=== PATIENT | female | born 1990 | race Caucasian/White ===

== ENCOUNTER 2020-02-25 14:52 | Emergency (ER) | payer OTHER ==
[~2020-02-25 14:52] MED LIST: IBUPROFEN600 MG PO; NORCO 5-325 TA1 EACH PO; OMNICEF 300 MG300 MG PO; PRENATAL VITAM1 EAC8 PO
[2020-02-25 16:01] LABS: HEMOGLOBIN 12.8 gm/dl (12.3-15.3); RED BLOOD COUNT 4.36 M/UL (4.00-5.10); WHITE BLOOD COUNT 5.7 K/UL (4.5-11.0)
[2020-02-25 16:22] LABS: BUN/CREATININE RATIO 13 (0-10)
[2020-02-25] MEDS ORDERED: AZITHROMYCIN500 MG PO (18:14)
== END 2020-02-25 18:38 | disposition home or self-care (01) ==
LOC: ER1 14:52
PROVIDERS: Emergency Medicine
DX: U07.1 COVID-19 (principal); Z86.718 Personal history of other venous thrombosis and embolism
CPT/HCPCS: 80053; 82550; 82553; 83605; 83735; 83874; 83880; 84100; 84484; 85025; 85610; 85730; 87040; 93005; 99285; Q9967; U0002

== ENCOUNTER 2020-04-24 03:23 | Outpatient (CLI) | payer OTHER ==
[~2020-04-24 03:23] MED LIST changes: +AZITHROMYCIN500 MG PO
[2020-04-24 05:53] LABS: HEMOGLOBIN 10.7 gm/dl (12.3-15.3); RED BLOOD COUNT 3.7 M/UL (4.00-5.10); WHITE BLOOD COUNT 21.2 K/UL (4.5-11.0)
[2020-04-24 06:14] LABS: BUN/CREATININE RATIO 13 (0-10)
[2020-04-25 07:22] LABS: HEMOGLOBIN 9.9 gm/dl (12.3-15.3); RED BLOOD COUNT 3.55 M/UL (4.00-5.10); WHITE BLOOD COUNT 10.7 K/UL (4.5-11.0)
== END 2020-04-25 21:12 | disposition home or self-care (01) ==
LOC: GENOP 03:23
PROVIDERS: Obstetrics & Gynecology
DX: O42.913 Preterm premature rupture of membranes, unspecified as to length of time between rupture and onset of labor, third trimester (principal); O26.93 Pregnancy related conditions, unspecified, third trimester; R10.9 Unspecified abdominal pain; Z3A.30 30 weeks gestation of pregnancy; Z20.822 Contact with and (suspected) exposure to COVID-19
CPT/HCPCS: 36415; 59025; 80053; 81001; 82731; 83518; 85025; 87040; 87210; 93970; 96360; 96361; 96365; 96367; 96374; 96375; 96376; C9113; J0690; J2270; J2405; J3370; J7070; U0002

== ENCOUNTER 2020-05-03 13:26 | Outpatient (CLI) | payer OTHER ==
[2020-05-03 14:16] LABS: HEMOGLOBIN 10.9 gm/dl (12.3-15.3); RED BLOOD COUNT 3.84 M/UL (4.00-5.10)
[2020-05-03 14:54] LABS: BUN/CREATININE RATIO 19 (0-10)
== END 2020-05-04 12:26 | disposition home or self-care (01) ==
LOC: GENOP 13:26
PROVIDERS: Obstetrics & Gynecology
DX: O99.891 Other specified diseases and conditions complicating pregnancy (principal); R50.9 Fever, unspecified; M79.10 Myalgia, unspecified site; Z20.822 Contact with and (suspected) exposure to COVID-19
CPT/HCPCS: 0240U; 36415; 59025; 80053; 81001; 83605; 85025; 87040; 87081; 87086; 87880; 96360; 96361; 96374; J2405; J7120

== ENCOUNTER → 2020-05-20 | Outpatient (CLI) | payer OTHER | LOC: GENOP 15:28 | DX: O36.8130 Decreased fetal movements, third trimester, not applicable or unspecified (principal); O42.913 Preterm premature rupture of membranes, unspecified as to length of time between rupture and onset of labor, third trimester; Z3A.33 33 weeks gestation of pregnancy | CPT/HCPCS: 76815; 83518 ==

== ENCOUNTER 2020-06-06 12:16 | Observation (INO) | payer OTHER ==
[2020-06-06 13:01] LABS: HEMOGLOBIN 10.6 gm/dl (12.3-15.3); RED BLOOD COUNT 3.98 M/UL (4.00-5.10); WHITE BLOOD COUNT 13.4 K/UL (4.5-11.0)
[2020-06-06 13:31] LABS: BUN/CREATININE RATIO 11 (0-10)
== END 2020-06-06 18:18 | disposition short-term general hospital (02) ==
LOC: GENOP 12:16 → OB 12:44 → GENOP 18:18 → OB 18:18
PROVIDERS: Obstetrics & Gynecology; ADMIT Obstetrics & Gynecology
DX: O99.891 Other specified diseases and conditions complicating pregnancy (principal); R10.9 Unspecified abdominal pain; R20.0 Anesthesia of skin; M79.605 Pain in left leg; M79.604 Pain in right leg; M54.9 Dorsalgia, unspecified; R26.2 Difficulty in walking, not elsewhere classified; O99.343 Other mental disorders complicating pregnancy, third trimester; F41.9 Anxiety disorder, unspecified; F32.9 Major depressive disorder, single episode, unspecified; Z3A.35 35 weeks gestation of pregnancy
CPT/HCPCS: 80053; 81001; 82570; 83518; 83615; 84156; 84550; 85025; 96360; 96361; G0378; J2405; J7120

== ENCOUNTER → 2021-08-30 | Outpatient (CLI) | payer OTHER ==
[~2021-08-30] MED LIST changes: +EXCEDRIN EXTRA1 EACH PO; +LEXAPRO TAB 1010 MG PO
[2021-08-30 14:51] LABS: HEMOGLOBIN 13.5 gm/dl (12.3-15.3); RED BLOOD COUNT 4.6 M/UL (4.00-5.10); WHITE BLOOD COUNT 11.2 K/UL (4.5-11.0)
== END ==
LOC: OPSV2 12:30
PROVIDERS: Obstetrics & Gynecology
DX: Z01.812 Encounter for preprocedural laboratory examination (principal); N92.0 Excessive and frequent menstruation with regular cycle
CPT/HCPCS: 81001; 85025

== ENCOUNTER → 2021-09-05 | Day surgery (SDC) | payer OTHER | END | disposition home or self-care (01) | LOC: OR 08:29 | DX: N93.9 Abnormal uterine and vaginal bleeding, unspecified (principal); N92.1 Excessive and frequent menstruation with irregular cycle; N94.6 Dysmenorrhea, unspecified; Z98.51 Tubal ligation status; F41.9 Anxiety disorder, unspecified; F32.A Depression, unspecified; F41.0 Panic disorder [episodic paroxysmal anxiety]; Z79.82 Long term (current) use of aspirin; Z79.899 Other long term (current) drug therapy | CPT/HCPCS: J1100; J1170; J1885; J2001; J2250; J2405; J2704; J2795; J3010 ==